=== PATIENT | male | born 1975 | race Caucasian/White ===

== ENCOUNTER 2025-09-05 07:59 | Emergency (ER) | payer SELFPAY ==
--- NOTE | ~2025-09-05 | CT_ITS ---
EXAM/PROCEDURE: CT abdomen pelvis wo con HISTORY: left flank pain, hsx of kidney stone COMPARISON: None available. TECHNIQUE: Noncontrast CT of the abdomen and pelvis FINDINGS: Mild to moderate left-sided hydroureteronephrosis present with 4 mm stone at the left UVJ. Mild periureteral strandy changes, as well as perinephric strandy changes present. The left kidney is also slightly enlarged. 6 mm mid pole left kidney stone. No right-sided kidney or ureteral stones or urinary bladder stones otherwise seen. Prostate normal size. Adrenal glands unremarkable. Mild fatty liver changes. Small hiatal hernia. The liver and adrenal glands spleen pancreas stomach otherwise appear normal for technique. Moderately severe diffuse diverticular disease with no gross acute diverticulitis. No gross CT evidence of acute pancreatitis or cholecystitis. Normal size appendix and aorta. Lung bases clear. Diffuse degenerative changes throughout the bones which otherwise appear intact. IMPRESSION: Mild left-sided hydroureteronephrosis associated with 4 mm left UVJ stone and changes about the left ureter and kidney which could also represent ascending UTI. Reviewed, dictated and finalized at location A. LEX MANAGER
[2025-09-05 08:08] VITALS: BP 183/88; PULSE 73; RESP 16; TEMP 36.8; O2SAT 100
[2025-09-05 08:31] LABS: Hematocrit 48.2 % (42.0-52.0); Hemoglobin 16.6 g/dL (14.0-18.0); Immature Granulocyte Percent A 0.3 % (0-0.5); Lymphocytes Absolute Auto 2.27 K/mm3 (0.9-3.2); Mean Corpuscular HGB Conc 34.4 g/dl (32-36); Mean Corpuscular Hemoglobin 31.0 pg (26-34); Mean Corpuscular Volume 90.1 fl (80-100); Nucleated Red Blood Cells Absolute Auto 0.000 K/mm3 (0.0-0.012); Nucleated Red Blood Cells Perc 0.0 % (0.0-0.2); Platelet Count Result 229 k/mm3 (150-375); Red Blood Count 5.35 M/mm3 (4.6-6.20); White Blood Count 13.1 K/mm3 (4.5-10.0)
--- NOTE | 2025-09-05 08:32 | ED_ITS ---
HPI - General Adult General Chief complaint: Urogenital-Male Stated complaint: left flank pain - hx kidney stones Time Seen by Provider: 09/05/25 08:12 History of Present Illness HPI narrative: 49-year-old male presented to the emergency department for evaluation for left flank pain. Patient does have a prior history of kidney stones approximately 20 years ago. Patient denies any other significant past medical history. Patient states the pain had been bothering a few days ago and improved final for to the pain did return today. Patient denies any pain with urination. Patient denies any blood in his urine. Patient states the pain goes from the left flank and is beginning to wrap around into his lower abdomen. Patient does complain of associated nausea. Related Data Allergies Allergy/AdvReac Type Severity Reaction Status Date / Time No Known Allergies Allergy Mild Verified 09/05/25 08:12 Review of Systems 2 Review of Systems: All systems reviewed & are unremarkable except as noted in HPI and below Exam 2 Narrative: APPEARANCE: uncomfortable appearing HEAD: normocephalic, atraumatic. EYES: PERRLA/EOMI, conjunctivae clear. NOSE: Normal no drainage EARS:TMS clear with good light reflex. THROAT: Pharynx clear, no exudate. NECK: Supple. No adenopathy, no masses. RESPIRATORY: Airway patent, respirations nonlabored. Clear to auscultation bilaterally, no rales, rhonchi, wheezing. CARDIOVASCULAR: Regular rate and rhythm without murmurs rubs or gallops. ABDOMINAL: left flank pain and tenderness to palpation MUSCULOSKELETAL: Moves all extremities. Strength/ROM intact, No edema, No calf tenderness. NEURO: Alert. Cranial nerves II through XII intact. Good gait. Good coordination SKIN: Warm, dry. Normal Color Course Vital Signs Vital signs: Vital Signs Temperature 98.2 F 09/05/25 08:08 Pulse Rate 73 09/05/25 08:08 Respiratory Rate 16 09/05/25 08:08 Blood Pressure 183/88 H 09/05/25 08:08 Pulse Oximetry 100 09/05/25 08:08 Oxygen Delivery Room Air 09/05/25 08:08 Temperature 98.2 F 09/05/25 08:08 Pulse Rate 73 09/05/25 08:08 Respiratory Rate 16 09/05/25 08:08 Blood Pressure 183/88 H 09/05/25 08:08 Pulse Oximetry 100 09/05/25 08:08 Oxygen Delivery Room Air 09/05/25 08:08 Medical Decision Making MDM Narrative Medical decision making narrative: 49-year-old male present to the emergency department for evaluation for left flank pain. Patient is currently afebrile but does have a leukocytosis of 13.1 stable hemoglobin of 16.6. Patient has normal kidney function. UA is negative for infection was positive for red blood cells. Patient does have a 4 mm UVJ stone on the left. Patient declined narcotic pain medication was treated with Toradol. Patient will be started on Flomax provide additional medication for pain control for home. Patient will be for outpatient follow-up with Urology. All questions concerns were addressed patient was well-appearing at time of discharge. Differential Diagnosis Differential Diagnosis: Colitis, diverticulitis, urinary tract infection, ureteral calculi Vital Signs Vital Signs: Vital Signs Temperature 98.2 F 09/05/25 08:08 Pulse Rate 73 09/05/25 08:08 Respiratory Rate 16 09/05/25 08:08 Blood Pressure 183/88 H 09/05/25 08:08 Pulse Oximetry 100 09/05/25 08:08 Oxygen Delivery Room Air 09/05/25 08:08 Temperature 98.2 F 09/05/25 08:08 Pulse Rate 73 09/05/25 08:08 Respiratory Rate 16 09/05/25 08:08 Blood Pressure 183/88 H 09/05/25 08:08 Pulse Oximetry 100 09/05/25 08:08 Oxygen Delivery Room Air 09/05/25 08:08 Lab Data Lab results reviewed: Yes I reviewed the patient's lab results. 09/05/25 08:17 09/05/25 08:17 Labs: Lab Results 09/05/25 Range/Units 08:17 WBC 13.1 H (4.5-10.0) K/mm3 RBC 5.35 (4.6-6.20) M/mm3 Hgb 16.6 (14.0-18.0) g/dL Hct 48.2 (42.0-52.0) % MCV 90.1 (80-100) fl MCH 31.0 (26-34) pg MCHC 34.4 (32-36) g/dl RDW 13.5 (11.5-14.5) % Plt Count 229 (150-375) k/mm3 MPV 10.4 (7.4-10.4) fl Immature Gran % (Auto) 0.3 (0-0.5) % Neut % (Auto) 75.6 H (45.5-73.1) % Lymph % (Auto) 17.4 L (18.3-44.2) % [place] % (Auto) 6.2 (2.6-8.5) % Eos % (Auto) 0.2 (0-4.4) % Baso % (Auto) 0.3 (0.2-1.2) % Lymph # (Auto) 2.27 (0.9-3.2) K/mm3 [place] # (Auto) 0.8 H (0.1-0.6) K/mm3 Eos # (Auto) 0.0 (0-0.3) K/mm3 Baso # (Auto) 0.0 (0.0-0.1) K/mm3 Abs Immat Gran (auto) 0.04 H (0.00-0.031) K/mm3 Absolute Neuts (auto) 9.9 H (1.3-6.7) K/mm3 Absolute Nucleated RBC 0.000 (0.0-0.012) K/mm3 Nucleated RBC % 0.0 (0.0-0.2) % Sodium 137 (137-145) mmol/L Potassium 4.1 (3.4-5.0) mmol/L Chloride 107 (98-107) mmol/L Carbon Dioxide 20 L (22-30) mmol/L Anion Gap 10 (4-12) mmol/L BUN 12 (9-20) mg/dL Creatinine 0.96 (0.7-1.3) mg/dL Estim Creat Clear Calc 101 ml/min Estimated GFR > 60 (59 - ) Glucose 116 H (65-110) mg/dL Calcium 9.2 (8.4-10.2) mg/dL Total Bilirubin 0.7 (0.2-1.3) mg/dL AST 29 (17-59) U/L ALT 26 (6-50) U/L Alkaline Phosphatase 65 (38-126) U/L Total Protein 7.4 (6.3-8.2) g/dL Albumin 4.5 (3.5-5.1) g/dL Urine Color Yellow (Yellow) Urine Appearance Turbid H (Clear) Urine pH >=9.0 H (5.0-9.0) Ur Specific [place] 1.018 (1.001-1.035) Urine Protein 2+ H (Negative) mg/dL Urine Glucose (UA) Negative (Negative) mg/dL Urine Ketones Negative (Negative) mg/dL Ur Blood (Man) Non-hemolyzed trace (Negative) Urine Nitrate Negative (Negative) Urine Bilirubin Negative (Negative) Urine Urobilinogen 0.2 (<2.0) mg/dL Leukocyte Esterase Rfl Trace H (Negative) JEANIE/UL Urine RBC 6-10 H (0-2) /hpf Urine WBC 0-5 (0-3) /hpf Ur Squamous Epith Cells None seen (Few) /hpf Urine Bacteria None seen /hpf Urine Casts 0-2 Imaging Data Radiologist's impression: Impressions Abdomen/Pelvis CT 09/05/25 08:42 IMPRESSION: Mild left-sided hydroureteronephrosis associated with 4 mm left UVJ stone and changes about the left ureter and kidney which could also represent ascending UTI. Discharge Plan Discharge Clinical Impression: Calculus, ureteral Patient Disposition: Home Condition: Stable Instructions: Antibiotic Form, Kidney Stones (ED), How to Strain Your Urine (ED), Flank Pain (ED) Additional Instructions: ibuprofen for pain control. [place] as needed for additional pain control. Flomax as to help you pass the stone. Zofran for nausea control. Strain your urine as instructed. Have close follow-up with Urology. If you have any worsening symptoms then please call or return to the emergency department. Patient Language: Indian Prescriptions: New hydrocodone-acetaminophen 5-325 mg tablet 1 tablet PO Q12H PRN (Reason: pain) Qty: 14 0RF tamsulosin [Flomax] 0.4 mg capsule 0.4 mg PO DAILY 14 Days Qty: 14 0RF ondansetron 4 mg tablet,disintegrating 4 mg PO Q8H PRN (Reason: nausea and vomiting) Qty: 14 0RF Follow-up/Referrals: PHYSICIAN,DRY WALL NAILER [Primary Care Provider, Internal Medicine] Jeffry Kaufman MD [Physician, Urology]
[2025-09-05 08:34] LABS: Add Urine Microscopic? YES; Appearance Urine Turbid (Clear); Glucose Urine UA Negative (Negative); Leukocyte Esterase Ur Trace LEU/UL (Negative); Nitrate Urine Negative (Negative); Non Pathogenic Casts 0-2; Specific Grav Ur 1.018 (1.001-1.035)
[2025-09-05 08:50] LABS: Alanine Aminotransferase 26 U/L (6-50); Albumin Level 4.5 g/dL (3.5-5.1); Alkaline Phosphatase 65 U/L (38-126); Anion Gap 10 mmol/L (4-12); Aspartate Amino Transferase 29 U/L (17-59); Bilirubin,Total 0.7 mg/dL (0.2-1.3); Blood Urea Nitrogen 12 mg/dL (9-20); Calcium 9.2 mg/dL (8.4-10.2); Carbon Dioxide 20 mmol/L (22-30); Chloride 107 mmol/L (98-107); Estimated CRCL calculation 101 ml/min; Estimated Glomerular Filt Rate > 60; Glucose 116 mg/dL (65-110); Potassium 4.1 mmol/L (3.4-5.0); Sodium 137 mmol/L (137-145); Total Protein 7.4 g/dL (6.3-8.2)
[2025-09-05] MEDS: LACTATED RINGERS 1,000 ML 999 ML IV CONT (09:00)
[2025-09-05] MEDS: ONDANSETRON INJ 4 MG/2 ML VIAL IV PUSH (09:00)
[2025-09-05] MEDS: KETOROLAC 30 MG/ML VIAL (*BKC) IV PUSH (09:15)
[2025-09-05] MEDS: TAMSULOSIN HCL 0.4 MG CAPSULE PO (10:08)
== END 2025-09-05 10:12 | disposition home or self-care (01) ==
PROVIDERS: Emergency Provider Emergency Medicine
DX: N20.1 Calculus of ureter (principal); Z87.442 Personal history of urinary calculi
CPT/HCPCS: 36415; 74176; 80053; 81001; 85025; 96361; 96374; 96375; 99284; A9270; J1885; J2405; J7120